=== PATIENT | female | born 1985 | race Caucasian/White ===

== ENCOUNTER 2019-06-09 12:08 | Inpatient (IN) ==
[2019-06-09] MEDS ORDERED: CITRIC ACID/SODIUM CITRATE 30 ML UDCUP PO ONE (12:26)
[2019-06-09] MEDS ORDERED: FAMOTIDINE 20 MG/2 ML VIAL IV ONE (12:26)
[2019-06-09] MEDS ORDERED: CLINDAMYCIN INJ 900 MG in PREMIX 1 EACH IV ONE (12:26)
[2019-06-09] MEDS ORDERED: OXYTOCIN 10 UNIT/ML VIAL IM ONE (12:27)
[2019-06-09] MEDS ORDERED: OXYTOCIN/LR 30 UNIT/1,000 ML BAG IV ONE (12:27)
[2019-06-09] MEDS ORDERED: LACTATED RINGERS 1,000 ML IV ONE (12:27)
[2019-06-09] MEDS ORDERED: LACTATED RINGERS 1,000 ML IV SCH ×2 (12:30→15:00)
[2019-06-09 12:43] LABS: Basophils # 0.1 10*3/uL (0.0-0.2); Basophils % 0.4 % (0.0-0.8); Eosinophils # 0.3 10*3/uL (0.0-0.87); Hematocrit 33.9 VOL% (35.7-47.0); Immature Granulocytes % 1.3 %; Immature Granulocytes Absolute 0.17 #; Lymphocytes # 2.1 10*3/uL (1.4-4.0); Lymphocytes % 16.2 % (21.3-54.2); Mean Corpuscular HGB Conc 32.4 GM/DL (32-36); Mean Corpuscular Volume 87.4 FL (87-102); Mean Platelet Volume 11.8 FL (9.6-12.0); Monocytes % 5.5 % (1.7-12.7); Neutrophils % 74.6 % (38.7-73.9); Platelet Count 186 T/CUMM (130-400); Red Blood Count 3.88 MC/CUMM (3.8-5.5); Red Cell Distribution Width 14.4 % (9.3-17.3); White Blood Count 12.7 T/CUMM (4-12)
[2019-06-09] MEDS ORDERED: ONDANSETRON 4 MG/2 ML VIAL ONE (12:54)
[2019-06-09] MEDS ORDERED: BUPIVACAINE 0.25% 50 ML VIAL ONE (12:54)
[2019-06-09] MEDS ORDERED: PHENYLEPHRINE 1 MG/10 ML SYRINGE IV ONE (12:54)
[2019-06-09] MEDS ORDERED: BUPIVACAINE SPINAL 0.75% 2 ML AMP SPINAL ONE (12:54)
[2019-06-09 13:01] LABS: Albumin 2.2 G/DL (3.4-5.0); Bilirubin,Total 0.4 MG/DL (0.2-1.0); Calcium 8.2 MG/DL (8.5-10.1); Osmolality,Calculated 268.8 MOS/KG (273-304); Total Protein 6.3 G/DL (6.4-8.3)
[2019-06-09] MEDS ORDERED: ONDANSETRON 4 MG/2 ML VIAL IV ONE (13:04)
[2019-06-09] MEDS ORDERED: MEPERIDINE 50 MG/1 ML VIAL IV ONE (13:04)
[2019-06-09 14:29] LABS: Cord Arterial Blood HCO3 24.8 MMOL/L
[2019-06-09 14:32] LABS: Apearance,Urine CLEAR (Clear); Bilirubin,Urine Negative (Negative); Blood, Urine Negative (Negative); Glucose,Urine (UA) Negative (Negative); Ketones,Urine Negative (Negative); Mucus,Urine Occasional /LPF (Occasional); Nitrite,Urine Negative (Negative); Protein,Urine 30 MG/DL; RBC,Urine <1 /HPF (0-4); Urine Color Yellow (Yellow); Urine Specific Gravity 1.016 (1.001-1.035); WBC,Urine <1 /HPF (0-6)
[2019-06-09 14:34] LABS: Cord Venous Blood HCO3 22.9 MMOL/L; Cord Venous Blood PCO2 41.7 MMHG; Cord Venous Blood PO2 28.5 MMHG
[2019-06-09] MEDS ORDERED: ONDANSETRON 4 MG/2 ML VIAL IV PRN (14:47)
[2019-06-09] MEDS ORDERED: MAGNESIUM HYDROXIDE SUSP 30 ML UDCUP PO PRN (14:47)
[2019-06-09] MEDS ORDERED: RHO(D) IMMUNE GLOBULIN 300 MCG SYRINGE IM ONE (14:47)
[2019-06-09] MEDS ORDERED: OXYTOCIN/LR 20 UNIT/1,000 ML BAG IV ONE (14:47)
[2019-06-09] MEDS ORDERED: ACETAMINOPHEN 325 MG TABLET PO PRN (14:47)
[2019-06-09] MEDS ORDERED: MORPHINE 10 MG/10 ML VIAL ONE (14:52)
[2019-06-09 14:53] LABS: Cord Arterial Blood HCO3 24.2 MMOL/L
[2019-06-09] MEDS ORDERED: MIDAZOLAM 2 MG/2 ML VIAL ONE (14:53)
[2019-06-09 14:56] LABS: Cord Venous Blood HCO3 23.4 MMOL/L; Cord Venous Blood PCO2 42.8 MMHG; Cord Venous Blood PO2 18.6 MMHG
[2019-06-09] MEDS ORDERED: diphenhydrAMINE 50 MG/1 ML VIAL IV PRN (15:41)
[2019-06-09] MEDS ORDERED: hydrOXYzine HCL 25 MG/1 ML VIAL IM PRN (15:41)
[2019-06-09] MEDS: HYDROmorphone 2 MG/1 ML VIAL IV PRN ×3 (15:51→20:14)
[2019-06-09] MEDS: NICOTINE 21 MG/24 HR PATCH TRANSDERM SCH (17:35)
[2019-06-09] MEDS ORDERED: CLINDAMYCIN INJ 900 MG in PREMIX 1 EACH IV SCH (20:00)
[2019-06-09] MEDS: DOCUSATE SODIUM 100 MG CAPSULE PO SCH (20:24)
[2019-06-09] MEDS: CLINDAMYCIN INJ 900 MG in PREMIX 1 EACH IV SCH (20:24)
[2019-06-09] MEDS ORDERED: ceFAZolin 1,000 MG in SYRINGE 1 EACH IV SCH (21:00)
[2019-06-09] MEDS ORDERED: HYDROCORTISONE 2.5% RECTAL CREAM 30 GM TUBE TOP PRN (21:13)
[2019-06-09] MEDS: KETOROLAC 30 MG/1 ML VIAL IV PRN (21:15)
[2019-06-09] MEDS ORDERED: WITCH HAZEL PADS 100/JAR TOP PRN (21:36)
[2019-06-09] MEDS: guaiFENesin 200 MG/10 ML UDCUP PO PRN (22:18)
[2019-06-09 22:20] LABS: Basophils # 0.1 10*3/uL (0.0-0.2); Basophils % 0.3 % (0.0-0.8); Eosinophils # 0.2 10*3/uL (0.0-0.87); Eosinophils % 1.4 % (0.00-10.9); Hematocrit 28.5 VOL% (35.7-47.0); Hemoglobin 9.3 GM/DL (12.0-16.0); Immature Granulocytes % 0.8 %; Immature Granulocytes Absolute 0.14 #; Lymphocytes # 2.6 10*3/uL (1.4-4.0); Lymphocytes % 15.6 % (21.3-54.2); Mean Corpuscular HGB Conc 32.6 GM/DL (32-36); Mean Corpuscular Volume 87.4 FL (87-102); Mean Platelet Volume 12.2 FL (9.6-12.0); Monocytes % 6.2 % (1.7-12.7); Neutrophils % 75.7 % (38.7-73.9); Platelet Count 146 T/CUMM (130-400); Red Blood Count 3.26 MC/CUMM (3.8-5.5); Red Cell Distribution Width 14.1 % (9.3-17.3); White Blood Count 16.7 T/CUMM (4-12)
[2019-06-10] MEDS: HYDROmorphone 2 MG/1 ML VIAL IV PRN (00:07)
[2019-06-10] MEDS ORDERED: oxyCODONE/ACETAMINOPHEN 5-325 MG TABLET PO PRN (02:52)
[2019-06-10] MEDS: KETOROLAC 30 MG/1 ML VIAL IV PRN (03:26)
[2019-06-10] MEDS: oxyCODONE/ACETAMINOPHEN 5-325 MG TABLET PO PRN ×4 (03:30→20:10)
[2019-06-10] MEDS: SIMETHICONE CHEW 80 MG TABLET PO PRN ×3 (03:40→19:45)
[2019-06-10] MEDS: CLINDAMYCIN INJ 900 MG in PREMIX 1 EACH IV SCH (04:01)
[2019-06-10 06:27] LABS: Basophils # 0.1 10*3/uL (0.0-0.2); Basophils % 0.4 % (0.0-0.8); Eosinophils # 0.3 10*3/uL (0.0-0.87); Eosinophils % 1.9 % (0.00-10.9); Hematocrit 31.3 VOL% (35.7-47.0); Immature Granulocytes % 1.6 %; Immature Granulocytes Absolute 0.22 #; Lymphocytes # 2.2 10*3/uL (1.4-4.0); Lymphocytes % 15.8 % (21.3-54.2); Mean Corpuscular HGB Conc 31.9 GM/DL (32-36); Mean Corpuscular Volume 88.4 FL (87-102); Neutrophils % 73.3 % (38.7-73.9); Platelet Count 149 T/CUMM (130-400); Red Blood Count 3.54 MC/CUMM (3.8-5.5)
[2019-06-10] MEDS ORDERED: RHO(D) IMMUNE GLOBULIN 300 MCG SYRINGE IM ONE ×2 (08:43→09:00)
[2019-06-10] MEDS: IBUPROFEN 800 MG TABLET PO PRN ×3 (09:06→20:10)
[2019-06-10] MEDS: DOCUSATE SODIUM 100 MG CAPSULE PO SCH ×3 (09:08→20:10)
[2019-06-10] MEDS: NICOTINE 21 MG/24 HR PATCH TRANSDERM SCH (09:09)
[2019-06-10] MEDS: SERTRALINE 50 MG TABLET PO SCH (09:09)
[2019-06-10] MEDS: MULTIVITAMIN (PRENATAL) TABLET PO SCH (09:09)
[2019-06-10] MEDS: MAGNESIUM HYDROXIDE SUSP 30 ML UDCUP PO SCH (09:30)
[2019-06-10] MEDS: METOCLOPRAMIDE 10 MG TABLET PO SCH ×2 (09:30→18:00)
[2019-06-10] MEDS ORDERED: MAGNESIUM CITRATE 300 ML BOTTLE PO ONE (14:27)
[2019-06-10] MEDS ORDERED: HYDROCORTISONE 1% OINT 28.35 GM TUBE TOP PRN ×3 (17:58→19:30)
[2019-06-10] MEDS: guaiFENesin 200 MG/10 ML UDCUP PO PRN (20:21)
[2019-06-11] MEDS: MAGNESIUM HYDROXIDE SUSP 30 ML UDCUP PO SCH ×3 (00:05→21:32)
[2019-06-11] MEDS: METOCLOPRAMIDE 10 MG TABLET PO SCH ×3 (01:51→18:23)
[2019-06-11] MEDS: IBUPROFEN 800 MG TABLET PO PRN ×4 (01:51→20:03)
[2019-06-11] MEDS: oxyCODONE/ACETAMINOPHEN 5-325 MG TABLET PO PRN ×4 (01:52→20:03)
[2019-06-11] MEDS: SIMETHICONE CHEW 80 MG TABLET PO PRN ×4 (01:56→20:03)
[2019-06-11] MEDS: DOCUSATE SODIUM 100 MG CAPSULE PO SCH ×2 (09:04→20:03)
[2019-06-11] MEDS: NICOTINE 21 MG/24 HR PATCH TRANSDERM SCH (09:05)
[2019-06-11] MEDS: MULTIVITAMIN (PRENATAL) TABLET PO SCH (09:07)
[2019-06-11] MEDS: SERTRALINE 50 MG TABLET PO SCH (09:08)
[2019-06-12] MEDS: oxyCODONE/ACETAMINOPHEN 5-325 MG TABLET PO PRN ×3 (03:11→18:45)
[2019-06-12] MEDS: IBUPROFEN 800 MG TABLET PO PRN ×3 (07:22→23:20)
[2019-06-12] MEDS ORDERED: BUTALBITAL/ACETAMIN/CAFFEINE 50-325-40 MG TABLET PO ONE (08:42)
[2019-06-12] MEDS ORDERED: SUMAtriptan 6 MG/0.5 ML VIAL SUBCUT ONE (08:56)
[2019-06-12] MEDS ORDERED: LACTATED RINGERS 1,000 ML IV ONE (08:58)
[2019-06-12] MEDS: MULTIVITAMIN (PRENATAL) TABLET PO SCH (09:16)
[2019-06-12] MEDS: SERTRALINE 50 MG TABLET PO SCH (09:17)
[2019-06-12] MEDS: NICOTINE 21 MG/24 HR PATCH TRANSDERM SCH (09:19)
[2019-06-12] MEDS: DOCUSATE SODIUM 100 MG CAPSULE PO SCH ×2 (09:19→23:57)
[2019-06-12] MEDS: MAGNESIUM HYDROXIDE SUSP 30 ML UDCUP PO SCH ×2 (13:51→21:36)
[2019-06-12] MEDS: BUTALBITAL/ACETAMIN/CAFFEINE 50-325-40 MG TABLET PO SCH (17:34)
[2019-06-12] MEDS: SIMETHICONE CHEW 80 MG TABLET PO PRN (17:35)
[2019-06-12] MEDS ORDERED: LORazepam 1 MG TABLET ONE (20:23)
[2019-06-12] MEDS ORDERED: LORazepam 1 MG TABLET PO ONE (20:30)
[2019-06-13] MEDS: BUTALBITAL/ACETAMIN/CAFFEINE 50-325-40 MG TABLET PO SCH ×3 (02:44→13:23)
[2019-06-13 07:45] VITALS: BP 143/88
[2019-06-13] MEDS: oxyCODONE/ACETAMINOPHEN 5-325 MG TABLET PO PRN (08:41)
[2019-06-13] MEDS: IBUPROFEN 800 MG TABLET PO PRN (08:42)
[2019-06-13] MEDS: DOCUSATE SODIUM 100 MG CAPSULE PO SCH (09:17)
[2019-06-13] MEDS: SERTRALINE 50 MG TABLET PO SCH (09:18)
[2019-06-13] MEDS: MULTIVITAMIN (PRENATAL) TABLET PO SCH (09:18)
[2019-06-13] MEDS: NICOTINE 21 MG/24 HR PATCH TRANSDERM SCH (09:28)
[2019-06-13] MEDS: SIMETHICONE CHEW 80 MG TABLET PO PRN (09:32)
== END 2019-06-13 13:25 | disposition home or self-care (01) | DRG 540 ==
LOC: N.LDOUT 12:08 → N.LD 12:10 → N.OB 18:00
PROVIDERS: ADMIT Obstetrics & Gynecology; ATTEND Obstetrics & Gynecology